=== PATIENT | female | born 1970 | race Hispanic/Latino ===

== ENCOUNTER 2017-05-02 10:27 | Observation (INO) | payer BC ==
[2017-05-02 10:35] VITALS: BMI 25.4
--- NOTE | 2017-05-02 10:51 | ED PDOC ---
Arrival/HPI - General Time Seen by Provider: 05/02/17 10:30 Historian: Patient - History of Present Illness Narrative History of Present Illness (Text): 05/02/17 10:45 A 47 year old female whose past medical history includes chronic anemia, presents to the emergency department with chest pain and palpitations. The patient states that she has been stressed for the past 2-3 days and it became worse at work this morning. She reports increased stressors at work over "past two days" and "it really caught up to me today". Coworker states patient became very tearful, "hyperventilating" and was complaining of chest pain and palpitations. Patient denies prior cardiac disease. Denies pleuritic chest pain. Denies shortness of breath. Denies leg pain or swelling. Denies headache or nausea or vomiting. PMD: Dr. Gil Hathaway 05/02/17 14:07 Time/Duration: Prior to Arrival Symptom Onset: Sudden Symptom Course: Unchanged Activities at Onset: Rest, Light Context: Work Past Medical History - Provider Review Nursing Documentation Reviewed: Yes - Infectious Disease Hx of Infectious Diseases: None - Tetanus Immunization Tetanus Immunization: Unknown - Past Medical History Past Medical History: No Previous - Cardiac Hx Cardiac Disorders: No - Pulmonary Hx Respiratory Disorders: No - Neurological Hx Neurological Disorder: No - HEENT Hx HEENT Disorder: Yes (glasses) - Renal Hx Renal Disorder: Yes Hx Kidney Stones: Yes - Endocrine/Metabolic Hx Endocrine Disorders: No - Hematological/Oncological Hx Blood Disorders: No - Integumentary Hx Dermatological Disorder: No - Musculoskeletal/Rheumatological Hx Arthritis: Yes - Gastrointestinal Hx Gastrointestinal Disorders: No - Genitourinary/Gynecological Hx Genitourinary Disorders: No - Psychiatric Hx Psychophysiologic Disorder: Yes Hx Anxiety: Yes Hx Depression: Yes Hx Emotional Abuse: No Hx Physical Abuse: No Hx Substance Use: Yes - Surgical History Hx Cholecystectomy: Yes Hx Gastric Bypass Surgery: Yes Hx Hysterectomy: Yes Hx Orthopedic Surgery: Yes (Right Elbow, Left neck plate) - Anesthesia Hx Anesthesia: Yes Hx Anesthesia Reactions: No Hx Malignant Hyperthermia: No - Suicidal Assessment Feels Threatened In Home Enviroment: No Family/Social History - Physician Review Nursing Documentation Reviewed: Yes Family/Social History: No Known Family HX Smoking Status: Never Smoked Hx Alcohol Use: Yes Hx Substance Use: Yes Hx Substance Use Treatment: No Allergies/Home Meds Allergies/Adverse Reactions: Allergies No Known Allergies Allergy (Verified 01/13/15 07:43) Home Medications: Home Meds Medication Instructions Recorded Confirmed Alprazolam [Xanax] 0.5 mg PO BID PRN 05/02/17 05/02/17 Mirtazapine [Remeron] 30 mg PO DAILY 05/02/17 05/02/17 Venlafaxine [Effexor XR] 150 mg PO DAILY 05/02/17 05/02/17 buPROPion XL [Wellbutrin] 150 mg PO DAILY 05/02/17 05/02/17 clonazePAM [clonAZEPAM] 0.5 mg PO BID 05/02/17 05/02/17 Review of Systems - Review of Systems Constitutional: absent: Fatigue, Fevers, Night Sweats Eyes: absent: Vision Changes ENT: absent: Hearing Changes Respiratory: absent: SOB, Cough Cardiovascular: Chest Pain, Palpitations. absent: Edema, [place], Orthopnea, Syncope Gastrointestinal: absent: Abdominal Pain, Diarrhea, Nausea, Vomiting Genitourinary Female: absent: Dysuria, Frequency Musculoskeletal: absent: Back Pain, Neck Pain Skin: absent: Rash Neurological: absent: Headache, Dizziness, Focal Weakness Endocrine: absent: Polyuria Hemo/Lymphatic: absent: Easy Bleeding Physical Exam - Physical Exam Narrative Physical Exam (Text): Head: Atraumatic. Normocephalic. Eyes: PERRL. EOMI. Conjunctivae are not pale. ENT: Mucous membranes are moist and intact. Oropharynx is clear and symmetric. Neck: Supple. Full ROM. No JVD. No lymphadenopathy. No thyromegaly. Cardiovascular: Tachycardic. No murmurs, rubs, or gallops. Distal pulses are 2+ and symmetric. Pulmonary/Chest: Tachypneic. No wheezing, rales or rhonchi. Abdominal: Soft and non-distended. There is no tenderness. No rebound, guarding, or rigidity. No organomegaly. Good bowel sounds. Back: No CVA tenderness. Extremities: No edema. No cyanosis. No clubbing. Full range of motion in all extremities. No calf tenderness. Skin: Skin is warm and dry. No petechiae. No purpura. Neurological: Alert, awake, and oriented to person, place, time, and situation. Normal speech. No facial droop. Motor and sensory intact. Psychiatric: Anxious and tearful. Depressed mood. Suicidal ideation, no plan. Vital Signs Reviewed: Yes Vital Signs Temp Pulse Resp BP Pulse Ox 05/02/17 13:56 106 H 20 129/75 99 05/02/17 12:43 108 H 14 123/70 100 05/02/17 10:38 98.5 F 146 H 49 H 145/112 H 98 Temperature: Afebrile Blood Pressure: Hypertensive Pulse: Tachycardic Respiratory Rate: Tachypneic Appearance: Positive for: Uncomfortable Pain Distress: Mild Mental Status: Positive for: other (Anxious) Medical Decision Making ED Course and Treatment: 05/02/17 10:54 Impression: A 47 year old female presents with chest pain and palpitations after feeling stressed for the past 2-3 days. Differential Diagnosis included but are not limited to: Anxiety vs. Depression vs. Panic Attack Plan: -- EKG -- Chest X-ray -- Urinalysis -- Labs -- Reassess and disposition Progress Notes: 05/02/17 10:50: Patient received Ativan prior to arrival as per medics. She currently denies suicidal ideation. On current exam she complins of chest pain and palpitations, althoughI suspect tachycardia ans tachypnea are due to anxiety. At this time, plan is to monitor, check labs, and reassess the patient. CHEST X-RAY Dictator : Vinny Fiore MD Report Date : 05/02/2017 11:48:04 IMPRESSION: No active disease. 05/02/17 13:17: Patient evaluated by Kitty HIRSCH. Patient does not want to be admitted. 05/02/17 13:54 Patient reportedly expresses suicidal ideation to mental health worker. She denies overdose or ingestions however. 1:1 was ordered for pt. On re -exam, heart rate has improved from 140 to 110. She continues to have intermittent sharp stabbing chest discomfort. Her initial troponin is unremarkable. She denies family medical history of [place], denies smoking history, denies pleuritic chest pain, she is not hypoxic. The patient noted to be anemic which appears chronic, no active bleeding. Patient with elevated WBC, afebrile, and no sign of infection currently, although will continue to monitor symptoms. She is less anxious on reevaluation. Patient will be admitted to medical telemetry unit for monitoring of persistent tachycardia and chest pain. Case discussed with Dr. Hathaway, accepts pt to service. Consult psychiatry for depression and suicidal ideation and maintain 1:1 precautions. Prior hx of depression and suicidal ideation noted, one to one observation reinforced. - Lab Interpretations Lab Results: 05/02/17 11:10 05/02/17 11:10 Lab Results 05/02/17 11:10: Alcohol, Quantitative < 10 05/02/17 11:10: Salicylates < 1 L, Acetaminophen < 10.0 L 05/02/17 11:10: Sodium 139, Potassium 4.4, Chloride 107, Carbon Dioxide 22, Anion Gap 14, BUN 13, Creatinine 0.7, Est GFR ( Amer) > 60, Est GFR (Non- Af Amer) > 60, Random Glucose 85, Calcium 8.5, Total Bilirubin 0.2, AST 43 H, ALT 42, Alkaline Phosphatase 92, Lactate Dehydrogenase 591, Total Creatine Kinase 420 H, CK-MB (CK-2) 4.0 H, CK-MB (CK-2) % Cancelled, Troponin I < 0.01, Total Protein 7.0, Albumin 4.0, Globulin 3.0, Albumin/Globulin Ratio 1.3 05/02/17 11:10: WBC 13.4 H D, RBC 3.87, Hgb 9.4 L, Hct 30.3 L, MCV 78.3 L, MCH 24.3 L, MCHC 31.0, RDW 18.2 H, Plt Count 351, MPV 9.4, Gran % 73.8 H, Lymph % ( Auto) 18.0 L, [place] % (Auto) 7.2 H, Eos % (Auto) 0.8 L, Baso % (Auto) 0.2, Gran # 9.86 H, Lymph # 2.4, [place] # 1.0 H, Eos # 0.1, Baso # 0.03 I have reviewed the lab results: Yes - RAD Interpretation Radiology Orders: 05/02/17 10:52 CHEST PORTABLE [RAD] Stat - EKG Interpretation EKG Interpretation (Text): EKG at 1034 sinus tachycardia, rate of 140, no acute st elevations Interpreted by ED Physician: Yes Type: 12 lead EKG - Scribe Statement The provider has reviewed the documentation as recorded by the Adrianaibrosa Resendiz Provider Scribe Attestation: All medical record entries made by the Scribe were at my direction and personally dictated by me. I have reviewed the chart and agree that the record accurately reflects my personal performance of the history, physical exam, medical decision making, and the department course for this patient. I have also personally directed, reviewed, and agree with the discharge instructions and disposition. Disposition/Present on Arrival - Present on Arrival Any Indicators Present on Arrival: No History of DVT/PE: No History of Uncontrolled Diabetes: No Urinary Catheter: No History Surgical Site Infection Following: None - Disposition Have Diagnosis and Disposition been Completed?: Yes Diagnosis: Chest pain, Palpitations, Depression Disposition: HOSPITALIZED Disposition Time: 12:00 Patient Plan: Admission, Telemetry Patient Problems: Current Active Problems Problem Status Onset Chest pain Acute Depression Acute Palpitations Acute Condition: FAIR
[2017-05-02 11:23] LABS: BASO # 0.03 K/mm3 (0.0-2.0); BASO % 0.2 % (0.0-3.0); EOS # 0.1 (0.0-0.7); EOS % 0.8 % (1.5-5.0); GRAN # 9.86 (1.4-6.5); GRAN % 73.8 % (50.0-68.0); HEMATOCRIT 30.3 % (36.0-48.0); LYMPH # 2.4 (1.2-3.4); MEAN CELL VOLUME 78.3 fl (80.0-105.0); MEAN CORPUSCULAR HEMOGLOBIN 24.3 pg (25.0-35.0); MEAN PLATELET VOLUME 9.4 fl (7.0-11.0); MONO % 7.2 % (1.0-6.0); RED CELL DISTRIBUTION WIDTH 18.2 % (11.5-14.5); WHITE BLOOD COUNT 13.4 10^3/ul (4.5-11.0)
[2017-05-02 11:31] LABS: ALB/GLOB RATIO 1.3 (1.1-1.8); ALKALINE PHOSPHATASE 92 U/L (38-133); ALT/SGPT 42 U/L (7-56); AST/SGOT 43 U/L (15-39); BILIRUBIN,TOTAL 0.2 mg/dL (0.2-1.3); BLOOD UREA NITROGEN 13 mg/dL (7-21); CALCIUM 8.5 mg/dL (8.4-10.5); CARBON DIOXIDE 22 mmol/L (21-33); CHLORIDE 107 mmol/L (98-107); GFR AFRICAN-AMERICAN > 60; POTASSIUM 4.4 mmol/L (3.6-5.0); SODIUM 139 mmol/L (132-148)
[2017-05-02 11:36] LABS: GLUCOSE,RANDOM 85 mg/dL (70-110)
[2017-05-02 11:42] LABS: TROPONIN I < 0.01 ng/mL
--- NOTE | 2017-05-02 11:49 | RAD ---
HISTORY: chest pain COMPARISON: 06/06/2015 FINDINGS: LUNGS: No active pulmonary disease. PLEURA: No significant pleural effusion identified, no pneumothorax apparent. CARDIOVASCULAR: Normal. OSSEOUS STRUCTURES: No significant abnormalities. VISUALIZED UPPER ABDOMEN: Normal. OTHER FINDINGS: None. IMPRESSION: No active disease.
[2017-05-02 13:48] LABS: PH,URINE 5.5 (4.7-8.0); URINE APPEARANCE CLEAR (CLEAR); URINE BILIRUBIN NEGATIVE (NEGATIVE); URINE BLOOD NEGATIVE (NEGATIVE); URINE COLOR YELLOW (YELLOW); URINE GLUCOSE (UA) NEGATIVE (NEGATIVE); URINE KETONE NEGATIVE (NEGATIVE); URINE LEUKOCYTE ESTERASE NEGATIVE Leu/uL (NEGATIVE); URINE PROTEIN NEGATIVE mg/dL (<30 mg/dL); URINE UROBILINOGEN 0.2 E.U./dL (<1 E.U./dL)
[2017-05-02 13:57] VITALS: RESP 20
--- NOTE | 2017-05-02 15:24 | CARD ---
APPROVED REPORT EKG Measurement Heart [id number] <Conclusion> Sinus tachycardia Otherwise normal ECG
[2017-05-02] MEDS ORDERED: Pneumococcal 23-Valent Vaccine IM ONE (16:21)
--- NOTE | 2017-05-02 20:25 | CP.PCM.PN ---
Subjective - Date & Time of Evaluation Date of Evaluation: 05/02/17 Time of Evaluation: 20:20 - Subjective Subjective: S:Patient was seen because she requested a sleeping pill. States that she takes ambien 10 mg po at home. Also , she requested a change in schedule of her Remeron. States that she takes Remeron at night time when she is home. Has no other complaints now. Medical record was reviewed. O: Last Vital Signs 3 Temp 98.2 F 05/02/17 18:00 Pulse 100 H 05/02/17 18:00 Resp 20 05/02/17 18:00 BP 118/71 05/02/17 18:00 Pulse Ox 99 05/02/17 13:56 Awake. Not in distress. LUNGS:Normal breathing pattern. A:Adjustment insomnia. P:Ambien 5 mg PO now. will change Remeron from "Daily" to " HS". Objective - Vital Signs/Intake and Output Vital Signs (last 24 hours): Temp Pulse Resp BP Pulse Ox 98.2 F 100 H 20 118/71 99 05/02/17 18:00 05/02/17 18:00 05/02/17 18:00 05/02/17 18:00 05/02/17 13:56 - Medications Medications: Current Medications Acetaminophen (Tylenol 325mg Tab) 650 mg PO Q6H PRN PRN Reason: Headache Last Admin: 05/02/17 19:42 Dose: 650 mg Alprazolam (Xanax) 0.25 mg PO Q8 PRN; Protocol PRN Reason: Anxiety Stop: 05/09/17 22:01 Alprazolam (Xanax) 0.5 mg PO BID PRN; Protocol PRN Reason: Anxiety Bupropion HCl (Wellbutrin Xl) 150 mg PO DAILY TIGRE Clonazepam (Klonopin) 0.5 mg PO BID TIGRE PRN Reason: Protocol Last Admin: 05/02/17 18:13 Dose: 0.5 mg Mirtazapine (Remeron) 30 mg PO DAILY TIGRE Venlafaxine HCl (Effexor Xr) 150 mg PO DAILY TIGRE
[2017-05-03 06:13] VITALS: O2SAT 100
[2017-05-03 06:59] LABS: HEMATOCRIT 30.2 % (36.0-48.0); MEAN CELL VOLUME 78.4 fl (80.0-105.0); MEAN CORPUSCULAR HEMOGLOBIN 23.9 pg (25.0-35.0); MEAN CORPUSCULAR HGB CONC 30.5 g/dl (31.0-37.0); MEAN PLATELET VOLUME 9.7 fl (7.0-11.0); RED CELL DISTRIBUTION WIDTH 18.3 % (11.5-14.5); WHITE BLOOD COUNT 9.2 10^3/ul (4.5-11.0)
[2017-05-03 07:07] LABS: ALB/GLOB RATIO 1.4 (1.1-1.8); ALKALINE PHOSPHATASE 83 U/L (38-133); ALT/SGPT 42 U/L (7-56); AST/SGOT 44 U/L (15-39); BILIRUBIN,TOTAL 0.2 mg/dL (0.2-1.3); BLOOD UREA NITROGEN 9 mg/dL (7-21); CALCIUM 8.6 mg/dL (8.4-10.5); CARBON DIOXIDE 26 mmol/L (21-33); CHLORIDE 107 mmol/L (98-107); GFR AFRICAN-AMERICAN > 60; GLUCOSE,RANDOM 93 mg/dL (70-110); POTASSIUM 4.3 mmol/L (3.6-5.0); SODIUM 140 mmol/L (132-148); TOTAL PROTEIN 6.7 g/dL (5.8-8.3)
[2017-05-03] MEDS ORDERED: Non Formulary Medication (Venlafaxine [Effexor Xr] 150 MG) PO SCH (10:00)
[2017-05-03] MEDS ORDERED: buPROPion 150 mg/24 Hours XL Tab PO SCH (10:00)
[2017-05-03] MEDS ORDERED: Venlafaxine 75 mg ER Cap PO SCH (10:00)
[2017-05-03 12:11] VITALS: BP 126/76; PULSE 84; TEMP 97.4
--- NOTE | 2017-05-03 17:02 | HP ---
HISTORY OF PRESENT ILLNESS: I was called to the [facility] to see and admit Elis Proctor. She was in the emergency room, feeling very stressed and anxious with chest pain and palpitations. She had a very hard day at work over the past 2 to 3 days and it got very bad today and it caught up with her and she became very tearful, hyperventilating, had chest pain, palpitations, and felt very scared and came to the emergency room. She is doing better now. I gave her some medications for anxiety. PAST MEDICAL HISTORY: She has a past medical history of kidney stones; arthritis; anxiety; depression; substance abuse history, no more; cholecystectomy; gastric bypass surgery; hysterectomy; right elbow surgery; left neck plate. FAMILY HISTORY: There is hypertension in the family. SOCIAL HISTORY: She never smoked. There is alcohol history and substance abuse history. ALLERGIES: NO KNOWN DRUG ALLERGIES. MEDICATIONS: She takes Xanax, Remeron, Effexor, Wellbutrin and clonazepam. REVIEW OF SYSTEMS: No acute vision changes. No hearing changes. No sore throat. No neck pain. There is chest pain and palpitations. There is no shortness of breath and no cough. No abdominal pain or diarrhea. No nausea or vomiting. No problems urinating. No back pain, no neck pain, no skin rashes or ulcers. No headache or dizziness. No focal weakness. No easy bleeding. She is very anxious, very nervous, very upset, and stressed over situations at work. PHYSICAL EXAMINATION VITAL SIGNS: She has 98.5 temp, 146 pulse when she came in, respiratory rate, 145/112 blood pressure, and 98% O2 sat. She eventually improved to 106 pulse and down to 14 respiratory rate and 123/70 blood pressure and 100% O2 sat. HEENT: Head is atraumatic and normocephalic. She is tearful. Extraocular muscles are intact. Pupils are equal and reactive to light. Throat is moist. NECK: Supple. HEART: Regular rate. Normal S1 and S2. LUNGS: Decreased breath sounds, but clear to auscultation. No wheezes, no rhonchi, no rales. ABDOMEN: Soft, nontender, and positive bowel sounds. No guarding. No rebound. No CVA tenderness. EXTREMITIES: No edema. Good range of motion. SKIN: Warm and dry. No ulcers appreciated. NEUROLOGIC: Alert and oriented x3. She is calmer now with antianxiety medications. Normal speech, less anxious. She is eating her dinner. She was on a one-to-one. She is feeling much better than the way she was feeling earlier. No thoughts of suicide, no thoughts of harming herself. The depression has lifted and the anxiety has definitely lifted. She is a little bit depressed, but she understands why she is here and she has a friend with her and they are talking it out. She is better than when she came in 2 to 3 hours ago. LABORATORY DATA: She had 139 sodium, potassium 4.4, BUN 13, creatinine 0.7, GFR is greater than 60, sugar is 85, calcium is 8.5, total bilirubin is 0.2, AST is 43, ALT is 42, alk phos 92, lactate dehydrogenase is 591, troponin less than 0.01, total protein 7, albumin is 4, and globulin 3. White count is 30.4. I will check it tomorrow, it could be stress reaction. Hemoglobin 9.4, hematocrit 30.3 with 351 platelets. Urine is clean. Toxicology is completely negative. She had a chest x-ray that was fine and EKG showed tachycardia. ASSESSMENT AND PLAN: She will have a consult with Cardiology and Psychiatry. I am discontinuing the one-to-one. She should be back on her Xanax, Wellbutrin, Effexor, Remeron and Klonopin. I am hoping she has a peaceful night. I am hoping to discharge her tomorrow. She is on observation status. She is here for chest pain and anxiety and If the troponins are negative, we could set her up for an outpatient stress test and follow up with the psychiatrist on the outpatient too. Let us hope that she has a peaceful night and that she is anxiety and chest pain free. Fabricio Hathaway DO MTDD
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
--- NOTE | 2017-05-04 00:50 | CON ---
DATE: 05/03/2017 This consultation being done on behalf of Dr. Escoto whom I am covering. LOCATION: The patient in room 268, bed 2. REASON FOR CONSULTATION: Chest pain. HISTORY OF PRESENT ILLNESS: The patient is a 47-year-old female admitted with history that she is known to have anxiety. She sees psychiatrist on regular basis and has been on medication for that. The patient states that at job she got upset and she got stabbing type of chest pain radiating to the back. The patient denies any prior history of exertional chest pain. She says that many years ago she had cardiac cath and was told to be normal. The patient now is chest pain free. No shortness of breath. No palpitations. PAST HISTORY: Positive for anxiety under psychiatric care, gastric bypass surgery, gallbladder surgery, kidney stone. She had cervical spine surgery. PERSONAL HISTORY: Denies smoking, denies drinking. The patient used to be habit drinker a year and half ago and she is recovering from that. ALLERGIES: DENIES ANY ALLERGIES. FAMILY HISTORY: Nonsignificant. HOME MEDICATIONS: Clonazepam 0.5 mg b.i.d., Wellbutrin 150 mg p.o. daily, Effexor XR 150 mg p.o. daily, Remeron 30 mg p.o. daily, Xanax 0.5 mg b.i.d. p.r.n. PHYSICAL EXAMINATION VITAL SIGNS: Blood pressure 126/76, respiration 20, pulse 84, temperature 97.4. HEENT: Head is normocephalic. Eyes: Pupils normal. Conjunctiva slightly pale. NECK: JVP low. Carotids equal. THORAX: AP diameter normal. LUNGS: Clear. CARDIOVASCULAR: S1 and S2. ABDOMEN: Soft. No tenderness. No organomegaly. EXTREMITIES: No clubbing. No cyanosis. LABORATORY DATA: WBC 9.2, hemoglobin 9.2, hematocrit 30.2, platelets 327, sodium 140, potassium 4.3, BUN 9, creatinine 0.7, calcium normal. AST 44, ALT 42. Total protein, albumin normal. Troponin x3 negative. Chest x-ray, no active disease. EKG shows sinus tachycardia. DIAGNOSES: Chest pain, probably related to anxiety, history of anxiety, anemia. PLAN: Continue the patient's anxiety medications as per Psychiatry. The patient will do stress test and echo as an outpatient and we will follow. Zac Reynolds MD [facility] # [id number]
--- NOTE | 2017-05-04 04:40 | DS ---
HISTORY OF PRESENT ILLNESS: She is doing much better than when she came in. She is less anxious, no chest pain. She is feeling better. There was little anxiety and stress from work and she wants to go home. She is in much better spirits and no more issues as far as she could tell me. I am still waiting for psych and cardiology to visit her. PHYSICAL EXAMINATION: VITAL SIGNS: She has temp of 97.6, pulse 74, blood pressure 108/66, respiratory rate 20, and 100% sat on room air. HEENT: Head is atraumatic, normocephalic. HEART: Regular rate. LUNGS: Clear to auscultation. ABDOMEN: Soft. EXTREMITIES: No edema. MEDICATIONS: She is currently on Ambien, Effexor, Klonopin, Remeron, Wellbutrin, Xanax; and those are her regular medications that she takes at home. LABORATORY DATA: White count 9.2, hemoglobin 9.2, hematocrit 30.2. and platelets 327. Sodium 140, potassium 4.3, BUN 9, creatinine 0.7, GRF is greater than 60, sugar is 93, and calcium 8.6. Total bilirubin is 0.2, AST is 44, ALT is 42, alkaline phosphatase is 83. Troponins were all less then 0.01 x3 with total protein of 6.7. Urine screen, toxicology screen, chest x-ray with no acute disease. ASSESSMENT AND PLAN: I put a discharge in today for 1 o'clock with or without cardio and psych seeing her. I think physical stress and anxiety, may be she needs an outpatient stress test. We will see the cardiology as to work for. I will see her in the office next week and she was here for chest pain, anxiety, and she is much better today. Hopefully she will continue to improve. Fabricio Hathaway DO
== END 2017-05-03 13:43 | disposition home or self-care (01) ==
LOC: ED 10:27 → ERH 13:07 → 2RNO 14:45
PROVIDERS: ADMIT Family Medicine; ATTEND Family Medicine
DX: F41.1 Generalized anxiety disorder (principal); F32.9 Major depressive disorder, single episode, unspecified; R07.89 Other chest pain; R00.2 Palpitations; F43.10 Post-traumatic stress disorder, unspecified; F43.0 Acute stress reaction; D64.9 Anemia, unspecified; F51.02 Adjustment insomnia; Z87.442 Personal history of urinary calculi; Z56.6 Other physical and mental strain related to work; Z98.84 Bariatric surgery status
CPT/HCPCS: 36415; 71010; 80053; 81003; 82550; 82553; 83615; 84484; 85025; 85027; 90791; 93005; 99285; G0378; G0480

== ENCOUNTER 2017-11-25 15:22 | Emergency (ER) | payer BC ==
[2017-11-25 15:41] VITALS: RESP 18; BMI 32.1
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
[2017-11-25] MEDS ORDERED: Sodium Chloride 0.9% 1,000 ML IV STA (15:59)
[2017-11-25 16:37] LABS: BASO # 0.01 K/mm3 (0.0-2.0); BASO % 0.1 % (0.0-3.0); EOS % 0.3 % (1.5-5.0); GRAN # 9.78 (1.4-6.5); GRAN % 89.5 % (50.0-68.0); HEMOGLOBIN 9.1 g/dL (12.0-16.0); LYMPH # 0.8 (1.2-3.4); LYMPH % 7.4 % (22.0-35.0); MEAN CELL VOLUME 78.4 fl (80.0-105.0); MEAN CORPUSCULAR HEMOGLOBIN 24.5 pg (25.0-35.0); MEAN CORPUSCULAR HGB CONC 31.3 g/dl (31.0-37.0); MONO # 0.3 (0.1-0.6); MONO % 2.7 % (1.0-6.0); RBC 3.71 10^6/uL (3.5-6.1); RED CELL DISTRIBUTION WIDTH 18.2 % (11.5-14.5); WHITE BLOOD COUNT 10.9 10^3/ul (4.5-11.0)
--- NOTE | 2017-11-25 16:43 | CT ---
PROCEDURE: CT HEAD WITHOUT CONTRAST. HISTORY: headache COMPARISON: None available. TECHNIQUE: Axial computed tomography images were obtained through the head/brain without intravenous contrast. Radiation dose: Total exam DLP = 668 mGy-cm. This CT exam was performed using one or more of the following dose reduction techniques: Automated exposure control, adjustment of the mA and/or kV according to patient size, and/or use of iterative reconstruction technique. FINDINGS: HEMORRHAGE: No intracranial hemorrhage. BRAIN: No mass effect or edema. No atrophy or chronic microvascular ischemic changes. VENTRICLES: Unremarkable. No hydrocephalus. CALVARIUM: Unremarkable. PARANASAL SINUSES: Unremarkable as visualized. No significant inflammatory changes. MASTOID AIR CELLS: Unremarkable as visualized. No inflammatory changes. OTHER FINDINGS: None. IMPRESSION: Normal CT of the Head.
[2017-11-25 17:00] LABS: INR 0.85 (0.93-1.08); PARTIAL THROMBOPLASTIN TIME 28.9 Seconds (25.1-36.5); PROTHROMBIN TIME 9.6 SECONDS (9.4-12.5)
[2017-11-25 17:02] LABS: ALB/GLOB RATIO 1.3 (1.1-1.8); ALBUMIN 4.2 g/dL (3.0-4.8); ALT/SGPT 31 U/L (7-56); AST/SGOT 25 U/L (14-36); BLOOD UREA NITROGEN 12 mg/dL (7-21); CALCIUM 8.9 mg/dL (8.4-10.5); GFR AFRICAN-AMERICAN > 60; GFR NON-AFRICAN AMERICAN > 60
--- NOTE | 2017-11-25 17:03 | RAD ---
HISTORY: dizziness COMPARISON: 05/02/2017 FINDINGS: LUNGS: No active pulmonary disease. PLEURA: No significant pleural effusion identified, no pneumothorax apparent. CARDIOVASCULAR: Normal. OSSEOUS STRUCTURES: Cervical fusion hardware partially visualize-similar VISUALIZED UPPER ABDOMEN: Normal. OTHER FINDINGS: None. IMPRESSION: No active disease.
[2017-11-25 17:18] LABS: TROPONIN I < 0.01 ng/mL
[2017-11-25 18:45] VITALS: BP 124/74; PULSE 82; TEMP 98.1; O2SAT 98
--- NOTE | 2017-11-27 10:42 | CARD ---
APPROVED REPORT EKG Measurement Heart [id number] <Conclusion> Normal sinus rhythm Normal ECG
== END 2017-11-25 19:00 | disposition home or self-care (01) ==
LOC: ED 15:22
DX: D64.9 Anemia, unspecified (principal); R51 Headache; Z98.84 Bariatric surgery status
CPT/HCPCS: 70450; 71045; 80053; 82550; 82948; 83735; 84100; 84484; 85025; 85610; 85730; 96361; 96374; 99285; J2765; J7040